=== PATIENT | female | born 1945 | race Caucasian/White ===

== ENCOUNTER 2023-09-18 07:36 | Outpatient (CLI) | payer MEDICARE, BC, SELFPAY ==
--- NOTE | 2023-09-18 07:45 | CRLHL7_ITS ---
For Patients: As a result of the Cures Act, medical imaging exams and procedure reports are released immediately into your electronic medical record. You may view this report before your referring provider. If you have questions, please contact your health care provider. BILATERAL DIAGNOSTIC MAMMOGRAM WITH COMPUTER-AIDED DETECTION AND TOMOSYNTHESIS, 09/18/2023 CLINICAL HISTORY: BILATERAL breast pain, nonfocal. COMPARISON: 11/10/2021, 11/10/2020, 02/11/2020, 09/03/2019. TECHNIQUE: Digital BILATERAL mammogram in 4 projections using computer-aided detection and tomosynthesis. BREAST COMPOSITION: Scattered fibroglandular densities. FINDINGS: 3D CC/MLO BILATERAL mammogram images submitted. BILATERAL benign calcifications are present. No suspicious masses or architectural distortion. No adenopathy. IMPRESSION: Normal BILATERAL mammogram images. No suspicious findings. No evidence of malignancy. RECOMMENDATIONS: Routine screening mammography. BI-RADS Category 2: Benign A lay language report of this examination will be provided to the patient. Dictated by Gerber Orozco MD @ 09/18/2023 8:35:18 AM [email or web address] DW/Dictated by: Gerber Orozco MD @ 09/18/2023 8:35:00 AM DW/Dictated by: Gerber Orozco MD @ 09/18/2023 8:35:00 AM (Electronically Signed)
== END 2023-09-18 07:37 | disposition home or self-care (01) ==
LOC: MAMMO 07:37
PROVIDERS: PCP Family Medicine; Visit Provider Physician Assistant
DX: N64.4 Mastodynia (principal); R92.1 Mammographic calcification found on diagnostic imaging of breast
CPT/HCPCS: 77066; G0279

== ENCOUNTER 2023-10-18 11:20 | Outpatient (CLI) | payer MEDICARE, BC, SELFPAY ==
[2023-10-18 11:36] VITALS: BP 160/89; PULSE 63; RESP 16; O2SAT 97
[2023-10-18] MEDS: TETRACAINE 0.5% OPHTH 1 DROP EYE-BOTH ×3 (11:39→12:04)
[2023-10-18] MEDS: BRIMONIDINE TARTRATE 0.2% OPHTH 1 DROP EYE-BOTH ×2 (11:41→12:09)
--- NOTE | 2023-10-18 12:17 | P.OPTPRC_ITS ---
Procedure Note Date of procedure: 10/18/23 Will [facility] bill your pro fee for this procedure?: Yes Procedure Description: SURGEON: Wendy Covarrubias MD PREOPERATIVE DIAGNOSIS: Posterior capsular opacity, right and left eye POSTOPERATIVE DIAGNOSIS: Posterior capsular opacity, right and left eye PROCEDURE: YAG laser capsulotomy, both eyes ANESTHESIA: Topical. ESTIMATED BLOOD LOSS: None PATHOLOGY SPECIMEN: None COMPLICATIONS: None INDICATIONS: See consult note for details. The risks, benefits and alternatives of the procedure were explained to the patient, who elected to proceed and signed informed consent to do so. PROCEDURE: The patient was brought to the pre-holding area where the right and left eyes were identified as the operative eyes. I placed my initials above the eyes. The following was given in both eyes: The patient received 2 sets of 1 drop of 0.5% tetracaine and 1 drop of 1% tropicamide. They also received 1 drop of 0.2% brimonidine. They received 1 drop of 0.5% tetracaine immediately prior to bringing them back for the procedure. The patient was then brought to the procedure room where the right and left eyes were again identified as the operative eyes. A YAG Van capsulotomy lens was placed on the right eye. The laser was administered using a total number of 6 shots with an energy of 2.4 mJ per shot for a total energy of 14 mJ. The patient tolerated the procedure well. A YAG Van capsulotomy lens was placed on the left eye. The laser was administered using a total number of 6 shots with an energy of 2.4 mJ per shot for a total energy of 14 mJ. The patient tolerated the procedure well. DISPOSITION: The patient was taken back to the pre-holding area and given 1 drop of 0.2% brimonidine in both eyes. They were discharged to home in stable condition. The patient was instructed to call me or go to the emergency department with any sudden change, including dramatic loss of vision, severe pain in the eye or eyebrow region, nausea, or vomiting. The patient was instructed to use the 0.2% brimonidine 1 drop 2 times a day in both eyes for 1 week. The patient will follow up in the clinic in 1-2 weeks.
== END 2023-10-18 12:12 | disposition home or self-care (01) ==
PROVIDERS: PCP Family Medicine; Visit Provider Ophthalmology
DX: H26.9 Unspecified cataract (principal)
CPT/HCPCS: 66821; A9270